=== PATIENT | female | born 1960 | race Caucasian/White ===

== ENCOUNTER 2025-02-17 06:04 | Day surgery (SDC) | payer MEDICARE, SELFPAY ==
[2025-01-28 13:35] VITALS: BMI 31.8
[2025-01-28 14:26] LABS: Hematocrit 36.6 % (37.0-47.0); Hemoglobin 11.9 g/dL (12.0-16.0); Mean Corp Hgb Conc. 32.5 g/dL (33.0-37.0); Mean Corpuscular Volume 87.6 fL (81.0-99.0); Platelet Count 198 10^3/uL (130-400); Red Cell Dist. Width 14.6 % (11.5-14.5)
[2025-01-28 14:43] LABS: ALT (SGPT) 24 U/L (0-35); AST (SGOT) 23 U/L (14-36); Albumin 4.2 g/dl (3.5-5.0); Alkaline Phosphatase 112 U/L (38-126); Blood Urea Nitrogen 19 mg/dl (7-17); Calcium 9.3 mg/dl (8.4-10.2); Carbon Dioxide 28 mmol/L (22-30); Chloride 104 mmol/L (98-107); Estimated Creatinine Clearance 60 ml/min; Glucose 83 mg/dl (70-99); Potassium 4.2 mmol/L (3.5-5.1); Sodium 138 mmol/L (135-145); Total Protein 7.0 g/dl (6.3-8.2); eGFR > 60.00
[2025-01-28 15:03] LABS: Glycohemoglobin (HgbA1c) 5.7 % (4.0-5.6)
[2025-01-28 18:30] VITALS: BMI 31.8
--- NOTE | 2025-01-29 12:01 | VNURNOTE ---
Addendum entered by Soniya Melo RN 01/29/25 14:57:
Rec'ed call back from pt.
Explained same day joint protocol and post surgical plans. Introduced role of [facility] Liaison. Patient reports that she lives with her spouse in a split level home.
There are 3 steps to enter and a flight of steps to the second floor.
Pt has DME including a rolling walker.
PCP is Dr Natali Calvillo
Reviewed that she will have VN services initially and will then start outpatient PT.
Patient selects [facility] for home care needs and will go to [facility] for outpatient PT. Scheduled for 02/20.
Patient is in agreement with plan and states that her spouse will be home with her. Advised to bring RW with her day of surgery. [facility] contact number provided. Referral placed in [facility].
Plan: [facility] per [facility] joint protocol 02/17 then outpt PT on 02/20
Original Note:
[facility] liaison attempted to speak to pt 01/28, she was at a dentist appt and unavailable. Liaison called patient 01/29, no answer, left message. Contact number provided.
[facility] referral placed in [facility].
[facility] 02/17 Jad eisenberg/Dr Lew
--- NOTE | 2025-02-03 13:52 | CM ---
CM reviewed medical records. Patient for SDS THR. [facility] on board for SDS visit.
[2025-02-17] VITALS (13 sets, daily range): BP systolic 131–163; BP diastolic 82–90; PULSE 68; O2SAT 99; BMI 31.8
[2025-02-17] MEDS: NORMOSOL-R/PLASMALYTE-A 1000 IV (07:55)
[2025-02-17] MEDS: CELEBREX 200 MG PO (07:55)
[2025-02-17] MEDS: TYLENOL 650 MG PO (07:55)
[2025-02-17] MEDS: DILAUDID 0.5 MG IV (10:17)
[2025-02-17] MEDS: DILAUDID 0.25 MG IV (10:37)
[2025-02-17] MEDS: ZOFRAN 4 MG IV (11:36)
[2025-02-17] MEDS: TORADOL 15 MG IV (12:24)
[2025-02-17] MEDS: ANCEF 5 IV (12:25)
[2025-02-17] MEDS: CYKLOKAPRON 650 MG PO (12:25)
[2025-02-17] MEDS: FLOMAX 0.4 MG PO (12:38)
== END 2025-02-17 14:29 | disposition home health service (06) ==
LOC: SDS 06:04
PROVIDERS: ATTENDING PHYSICIAN Specialist; FAMILY PHYSICIAN Family Medicine
DX: M16.11 Unilateral primary osteoarthritis, right hip (principal); E66.9 Obesity, unspecified; Z68.31 Body mass index [BMI] 31.0-31.9, adult
CPT/HCPCS: 27130; 36415; 73502; 80053; 83036; 85027; 86850; 86900; 86901; 87070; 93005; 97116; 97162; C1713; C1776